=== PATIENT | female | born 1940 | race African-American/Black ===

== ENCOUNTER 2017-12-07 10:20 | Outpatient (CLI) | payer MEDICARE ==
--- NOTE | 2017-12-07 11:05 | MMO ---
BILATERAL SCREENING MAMMOGRAMS: HISTORY: A 77-year-old female for screening mammography. COMPARISON: 01/23/2014 and 09/06/2012 FINDINGS: Bilateral MLO and CC views of the breasts show scattered fibroglandular breast tissue. Vascular calc ifications are seen. Other benign appearing calcifications are seen in both breasts. There is no ev idence of suspicious mass, suspicious cluster of microcalcifications, or area of architectural distor tion. Interpretation of this mammogram was performed with the assistance of computer aided detection. IMPRESSION: BI-RADS Category 2-Benign findings. Annual screening mammography is recommended. POS: [facility]
== END 2017-12-07 10:21 | disposition home or self-care (01) ==
LOC: SCSMAMMO 10:20
PROVIDERS: ATTEND Family Medicine
DX: Z12.31 Encounter for screening mammogram for malignant neoplasm of breast (principal)
CPT/HCPCS: 77067

== ENCOUNTER 2018-10-25 18:15 | Observation (INO) | payer MEDICARE ==
[2018-10-25] MEDS ORDERED: Ondansetron PF 4 MG/2 ML Vial IVP PRN (20:23)
[2018-10-25] MEDS ORDERED: Ondansetron ODT 4 MG TAB PO PRN (20:23)
[2018-10-25] MEDS ORDERED: Acetaminophen 325 MG TAB PO PRN (20:23)
[2018-10-25 23:47] VITALS: BMI 30.7
[2018-10-26 05:52] LABS: #Eosinphils 0.1 thou/uL (0.0-0.7); #Lymphocytes 1.7 thou/uL (1.20-3.40); #Monocytes 0.4 thou/uL (0.11-0.59); #Neutrophils 3.6 thou/uL (1.40-6.50); %Basophils 0.8 % (0.0-1.0); %Eosinophils 2.5 % (0.0-10.0); %Lymphocytes 29.1 % (21.0-51.0); %Monocytes 7.1 % (0.0-10.0); %Neutrophils 60.5 % (42.0-75.0); Hemoglobin 11.5 g/dL (12.0-16.0); Mean Corpuscular Hemoglobin 32.7 pg (27.0-31.0); Mean Corpuscular Volume 98.9 fL (78.0-98.0); Mean Platelet Volume 8.1 fL (7.4-10.4); Platelet Count 177 thou/uL (130-400); RBC Distribution Width 12.3 % (11.5-14.5); White Blood Cell (WBC) Count 5.9 thou/uL (4.8-10.8)
[2018-10-26 06:11] LABS: Anion Gap 10 mmol/L (10-20); BUN (Urea Nitrogen) 12 mg/dL (9.8-20.1); Calc. Creatinine Clearance 94 mL/min (70-130); Calcium 10.3 mg/dL (7.8-10.44); Carbon Dioxide 26 mmol/L (23-31); Cardiac Risk 2.4 (Less than 4.5); Chloride 107 mmol/L (98-107); Cholesterol 158 mg/dl (< 200 Desired); Estimated GFR-MDRD 86; Glucose 84 mg/dL (83-110); HDL Cholesterol 66 mg/dL (>60 Neg Risk); LDL Cholesterol, Calculated 80 mg/dL; Potassium 3.9 mmol/L (3.5-5.1); Sodium 139 mmol/L (136-145); Triglycerides 58 mg/dL (Less than 150)
--- NOTE | 2018-10-26 06:45 | PDOC.EVN ---
Event Note - Event Note Event Note: Pt wants to be a full code
--- NOTE | 2018-10-26 08:01 | HP ---
CODE STATUS: DNR/DNI. As stated by patient, "If my time calls, please let me go, I will not like to be on any machine to prolong my life." TIME OF EVALUATION: 08:30. CHIEF COMPLAINT: Slurred speech. HISTORY OF PRESENT ILLNESS: This 77-year-old female patient with past medical history of hyperlipidemia, hypertension, came to the hospital after having an episode of being of speaking in a funny way, with no clear triggers, no alleviating factors, symptoms started around 3 to 4 p.m., and lasted for around 30 minutes. Symptoms have disappeared. There are no clear triggers, no other significant neurological symptoms were related, the symptoms started suddenly. REVIEW OF SYSTEMS: CONSTITUTIONAL: No fever, chills, or generalized weakness. RESPIRATORY: No cough, sputum production, or shortness of breath. CARDIOVASCULAR: No chest pain or palpitation. GASTROINTESTINAL: No nausea, vomiting, diarrhea, or abdominal pain. CENTRAL NERVOUS SYSTEM: No dizziness, headache or feeling lightheaded. The patient did have slurred speech. GENITOURINARY: No burning on urination. EXTREMITIES: No leg swelling. All other systems were reviewed and negative except for the findings mentioned above. PAST MEDICAL HISTORY: Positive for hypertension and high cholesterol. FAMILY HISTORY: Mother had a history of coronary artery disease, from a heart attack. SOCIAL HISTORY: The patient lives with family. KNOWN ALLERGIES: No known drug allergies. REPORTED MEDICATIONS: 1. Lisinopril. 2. Atorvastatin. 3. Vitamin D3. 4. Omeprazole. PHYSICAL EXAMINATION: VITAL SIGNS: On presentation, blood pressure 164/100, heart rate 71, respiratory rate was 19, temperature 98.5, oxygen saturation 99% on room air. GENERAL APPEARANCE: The patient is alert, oriented, not in acute distress. HEENT: Eyes, normal conjunctivae. Moist oral mucosa. Anicteric. No JVD. RESPIRATORY: Bilateral air entry. No rales. No wheezes. Symmetric expansion. CARDIOVASCULAR: Normal rate, regular rhythm. No murmurs. No gallop. No edema. ABDOMEN: Soft. Normal bowel sounds. MUSCULOSKELETAL: Baseline range of motion and strength. No tenderness. SKIN: Warm, intact. No pallor. No rash. No redness. Peripheral pulses are present. Capillary refill seems to be intact. NEUROLOGICAL: No evidence of any new focal weakness. Cranial nerves seem to be intact. PSYCHIATRIC: The patient is in good mood. No anxiety. Optimal judgment. DIAGNOSTIC DATA: EKG; the patient has normal sinus rhythm with a rate of 73, MT 176, QRS 108, QT corrected 431, voltage criteria for left ventricular hypertrophy. Brain CT was done, the patient has no acute intracranial process. LABORATORY DATA: Reviewed. The patient has white count 7.2, hemoglobin 12.5, MCV 96.7, platelet count 188. Coagulation; PT 13.4, INR 1.0, PTT 31.5. Chemistry; serum potassium 3.9, sodium 140, potassium 4.0, chloride 106, carbon dioxide 25, anion gap 13, BUN 15, , creatinine 1.0. GFR 63. ASSESSMENT AND PLAN: The patient will be placed in the hospital with following medical problems: 1. Transient ischemic attack. We will perform a stroke protocol. Call the Neurology. Further treatment as per findings in the workup. 2. Hypertensive urgency. The patient has a systolic blood pressure, 196/110. We will allow permissive hypertension given neew neurological symptoms. We will treat accordingly as per protocol. 3. High cholesterol. Low-cholesterol diet is advised. Reconcile home medications. 4. Deep venous thrombosis prophylaxis. Job ID: [id number] [facility]
[2018-10-26] MEDS ORDERED: Enoxaparin Sodium 40 MG/0.4 ML SYRINGE SC SCH (09:00)
[2018-10-26] MEDS ORDERED: Aspirin 325 mg Enteric Coated Tablet PO SCH (09:00)
--- NOTE | 2018-10-26 12:26 | MRI ---
BRAIN MRI WITHOUT CONTRAST: Date: 10/26/18 COMPARISON: 11/12/06. HISTORY: Slurred speech. TECHNIQUE: Multiplanar, multisequence MR imaging of the brain obtained without contrast. FINDINGS: Stable middle cranial fossa arachnoid cyst noted, measuring up to 4.2 x 4.6 x 6.0 cm. The gradient ec ho imaging demonstrates no evidence for intracranial hemorrhage. There is stable mild mass effect on the anterior aspect of the left temporal lobe associated with the above described stable left middle cranial fossa arachnoid cyst. There are scattered small T2 and FL AIR hyperintense foci within the periventricular, deep, and subcortical white matter, most prominent in the frontal regions, left greater than right, slightly worsened when compared to the prior examina tion. These findings are consistent with small vessel disease. The imaged paranasal sinuses demonstrate mild polypoid mucosal thickening within the posterior and in ferior aspect of bilateral maxillary sinuses. The regional bone marrow signal intensity is within normal limits. The diffusion-weighted imaging dem onstrates no evidence for acute infarction. IMPRESSION: Chronic findings as described above. No evidence for intracranial hemorrhage or acute infarction. POS: [facility]
[2018-10-26] MEDS ORDERED: Lisinopril 20 MG TAB PO SCH (12:45)
[2018-10-26] MEDS ORDERED: Cyanocobalamin (Vitamin B-12) 1,000 MCG TAB PO SCH (14:00)
[2018-10-26] MEDS ORDERED: hydrALAZINE 20 MG/ML VIAL SLOW IVP PRN (14:31)
[2018-10-26 15:56] VITALS: TEMP 97.9
[2018-10-26] MEDS ORDERED: hydrALAZINE 25 MG TAB PO SCH ×2 (16:00→21:00)
[2018-10-26 16:51] VITALS: BP 183/85
[2018-10-26] MEDS ORDERED: Atorvastatin Calcium 40 MG TAB PO SCH (21:00)
[2018-10-27] MEDS ORDERED: Non-Formulary Item 1 EACH (Omeprazole [Omeprazole] 40 MG) PO SCH (09:00)
[2018-10-27] MEDS ORDERED: Lisinopril 20 MG TAB PO SCH (09:00)
[2018-10-27] MEDS ORDERED: Non-Formulary Item 1 EACH (Cholecalciferol (Vitamin D3) [Vitamin D3] 2,000 UNIT) PO SCH (09:00)
--- NOTE | 2018-10-27 11:34 | DIS ---
DATE OF ADMISSION: 10/25/2018 DATE OF DISCHARGE: 10/26/2018 CHIEF COMPLAINT: On admission: Slurred speech. DISCHARGE DIAGNOSES: 1. Transient ischemic attack as evidenced by slurred speech, resolved, cerebrovascular accident workup negative. 2. History of congenital arachnoid cyst, stable per MRI. 3. Accelerated hypertension on arrival, now controlled. 4. Hyperlipidemia. 5. Diastolic dysfunction per echocardiogram. BRIEF HOSPITAL COURSE: The patient is a very pleasant, 77-year-old female with past medical history significant for hyperlipidemia and hypertension, who presented to the hospital after having a very brief episode of slurred speech. The patient stated that her episode only lasted a few seconds before resolving on its own, but she was very concerned about stroke, and presented to the ER for further workup and treatment. Workup on arrival included EKG which showed normal sinus rhythm and no evidence of arrhythmia. Her echocardiogram showed normal left ventricular systolic function with EF 60% to 65%, grade 1/3 diastolic dysfunction. She did have an MRI performed which showed stable middle cranial fossa arachnoid cyst, no evidence for intracranial hemorrhage or acute infarction. Dr. Clay of Neurology was consulted, who recommended aspirin therapy, along with continued statin therapy. Apparently, the patient's blood pressure medication had been titrated down prior to her admission, her lisinopril was reinstated along with oral hydralazine. Her blood pressure did trend down nicely. CONDITION ON DISCHARGE: Stable. DISCHARGE DISPOSITION: Home. FOLLOWUP AND DISCHARGE INSTRUCTIONS: The patient will continue close followup with her PCP. She will monitor her blood pressure at home. New medications will be aspirin 325 mg daily along with hydralazine 25 mg b.i.d. She will continue her home dose of lisinopril and statin. She will continue aggressive risk factor modification along with low-sodium diet. Care of this patient has been discussed with Dr. Pineda who agrees with discharge as outlined above. Job ID: [id number]
[2018-10-29] MEDS ORDERED: Non-Formulary Item 1 EACH (Cyanocobalamin (Vitamin B-12) [Vitamin B12] 2,500 MCG) PO SCH (09:00)
== END 2018-10-26 18:32 | disposition home or self-care (01) ==
LOC: ERS 18:15 → 2SE 21:17
PROVIDERS: ADMIT Internal Medicine; ATTEND Internal Medicine
DX: G45.9 Transient cerebral ischemic attack, unspecified (principal); I10 Essential (primary) hypertension; I16.0 Hypertensive urgency; E78.5 Hyperlipidemia, unspecified; E78.00 Pure hypercholesterolemia, unspecified; Z79.899 Other long term (current) drug therapy
CPT/HCPCS: 70551; 80048; 80061; 85025; 93306; 96372; 99285; G0378 ×2; 36415; J0360; J1650

== ENCOUNTER 2018-12-08 08:44 | Outpatient (CLI) | payer MEDICARE ==
[2018-12-08 09:58] LABS: #Eosinphils 0.1 thou/uL (0.0-0.7); #Lymphocytes 1.5 thou/uL (1.20-3.40); #Monocytes 0.5 thou/uL (0.11-0.59); #Neutrophils 3.8 thou/uL (1.40-6.50); %Eosinophils 1.5 % (0.0-10.0); %Lymphocytes 25.6 % (21.0-51.0); %Monocytes 8.2 % (0.0-10.0); %Neutrophils 64.7 % (42.0-75.0); Hemoglobin 12.4 g/dL (12.0-16.0); Mean Corpuscular HGB CONC 32.9 g/dL (32.0-36.0); Mean Corpuscular Hemoglobin 32.4 pg (27.0-31.0); Mean Corpuscular Volume 98.6 fL (78.0-98.0); Mean Platelet Volume 8.4 fL (7.4-10.4); Platelet Count 194 thou/uL (130-400); Red Blood Cell (RBC) Count 3.82 mill/uL (4.20-5.40); White Blood Cell (WBC) Count 5.8 thou/uL (4.8-10.8)
[2018-12-08 10:06] LABS: Prothrombin Time 12.9 SEC (12.0-14.7)
[2018-12-08 10:23] LABS: Anion Gap 13 mmol/L (10-20); BUN (Urea Nitrogen) 13 mg/dL (9.8-20.1); Calc. Creatinine Clearance 0 mL/min (70-130); Calcium 10.8 mg/dL (7.8-10.44); Carbon Dioxide 25 mmol/L (23-31); Chloride 106 mmol/L (98-107); Estimated GFR-MDRD 73; Glucose 97 mg/dL (83-110); Potassium 4.1 mmol/L (3.5-5.1); Sodium 140 mmol/L (136-145)
[2018-12-08 10:58] LABS: RBC/HPF 0-3 HPF (0-3); Squamous Epithelial 0-3 HPF (0-3); WBC/HPF 0-3 HPF (0-3)
[2018-12-08 11:05] LABS: Bacteria/HPF 1+ HPF (None Seen)
== END 2018-12-08 08:45 | disposition home or self-care (01) ==
LOC: LABBT 08:44
PROVIDERS: ATTEND Orthopaedic Surgery
DX: Z01.812 Encounter for preprocedural laboratory examination (principal); M17.11 Unilateral primary osteoarthritis, right knee
CPT/HCPCS: 80048; 81015; 85025; 85610; 87081

== ENCOUNTER 2018-12-19 05:44 | Inpatient (IN) | payer MEDICARE ==
[2018-12-19] MEDS ORDERED: ceFAZolin Sodium (SDC) 2 GM/100 ML BAG ONE (05:57)
[2018-12-19] MEDS ORDERED: Sodium Chloride 0.9% 100 ML ONE (05:57)
[2018-12-19] MEDS ORDERED: Tranexamic Acid 1,000 MG/10 ML VIAL ONE ×2 (05:57→09:30)
[2018-12-19] MEDS ORDERED: Vancomycin HCl 1.5 GM in Sodium Chloride 0.9% 250 ML 300 ML IVPB SCH ×2 (06:15→18:00)
[2018-12-19] MEDS ORDERED: Bupivacaine PF 0.5% 30 ML VIAL ONE (06:32)
[2018-12-19] MEDS ORDERED: Fentanyl 100 MCG/2 ML VIAL ONE (06:34)
[2018-12-19] MEDS ORDERED: Midazolam HCl 2 mg/2 ml Vial ONE (06:34)
[2018-12-19] MEDS ORDERED: Tranexamic Acid 1,000 MG in Sodium Chloride 0.9% 100 ML IVPB SCH (07:15)
[2018-12-19] MEDS ORDERED: Promethazine HCl 25 MG/ML VIAL IM PRN ×3 (07:16→07:50)
[2018-12-19] MEDS ORDERED: HYDROcodone/Acetaminophen 10/325 mg Tablet PO PRN ×2 (07:16)
[2018-12-19] MEDS ORDERED: Ondansetron PF 4 MG/2 ML Vial IVP PRN ×2 (07:16→07:44)
[2018-12-19] MEDS ORDERED: Fentanyl 100 MCG/2 ML VIAL SLOW IVP PRN ×2 (07:16→07:45)
[2018-12-19] MEDS ORDERED: Acetaminophen 325 MG TAB PO PRN (07:16)
[2018-12-19] MEDS ORDERED: traMADol HCl 50 MG TAB PO PRN ×3 (07:16→07:44)
[2018-12-19] MEDS ORDERED: Zolpidem Tartrate 5 MG TAB PO PRN ×2 (07:16→07:44)
[2018-12-19] MEDS ORDERED: Ropivacaine HCl/PF 250 ML in Premix Bag 1 BAG NERVE BLCK SCH (07:44)
[2018-12-19] MEDS ORDERED: Ketorolac Tromethamine 30 MG/ML VIAL IVP PRN (07:44)
[2018-12-19] MEDS ORDERED: Promethazine HCl 25 MG/ML VIAL SLOW IVP PRN (07:50)
[2018-12-19] MEDS ORDERED: Ondansetron HCl/PF 4 MG/2 ML Vial IVP PRN (07:50)
[2018-12-19] MEDS ORDERED: Atorvastatin Calcium 20 MG TAB PO SCH (09:00)
[2018-12-19] MEDS ORDERED: Lisinopril 20 MG TAB PO SCH (09:00)
[2018-12-19] MEDS: Sodium Chloride 0.9% 1,000 ML IV SCH ×3 (10:33→21:38)
[2018-12-19] MEDS ORDERED: hydrALAZINE 20 MG/ML VIAL SLOW IVP PRN (10:37)
--- NOTE | 2018-12-19 10:54 | OP ---
DATE OF PROCEDURE: 12/19/2018 INFANT CHILDCARE PROVIDER: Willy Olmstead PA-C PREOPERATIVE DIAGNOSIS: Right knee osteoarthrosis. POSTOPERATIVE DIAGNOSIS: Right knee osteoarthrosis. PROCEDURE PERFORMED: Right total knee replacement using Agusto pinless navigation. ESTIMATED BLOOD LOSS: Minimal. COMPLICATIONS: None. ANESTHESIA: She did have general anesthetic as well as preoperative block. COMPLICATIONS: There were no complications. IMPLANTS: To the right knee, we used a Agusto Triathlon total knee system. The femur was a size 5, tibial baseplate was size 5. We used a 5 x 11 mm CS X3 tibial plastic. We used a 29 x 9 asymmetric X3 patella. DISPOSITION: She did go to recovery room in stable condition. INDICATIONS: Ms. Kim is a 78-year-old female, who has had long-term arthritis of her knee and at this time is unable to get good pain relief for daily activities. At this time, she wished to have her knee replaced. PROCEDURE IN DETAIL: After all appropriate consent forms were explained and signed, the patient was taken back to the operating room and at this time was given general anesthetic. Once the level of anesthesia was appropriate, a well-padded tourniquet was placed on the right leg, and the leg was then prepped and draped in standard surgical fashion. The limb was exsanguinated and tourniquet taken up to 300 mmHg. Midline incision was made with a 10 blade down through the skin and subcutaneous tissue. Bovie electrocautery was used to coagulate any brisk venous bleeding. A new blade was used to make a medial parapatellar arthrotomy. Small subperiosteal release was performed medially and excess fat pad was removed. The knee was flexed up to gain access to the femur. The femur was navigated and distal femoral resection was made. Epicondylar access was used to align our sizing jig and this was pinned in place. We sized our femur to be a size 5. 4:1 cutting block was applied and pinned. Anterior and posterior chamfer cuts were then made. We navigated out our proximal tibia and made our proximal tibial resection. Spreaders were used to remove any posterior osteophytes off the back of the femur as well as remaining meniscal tissue. A long alignment anastasia was then used to achieve correct rotation of our tibial baseplate and a size 5 was chosen. This was pinned in place. We trialed the polyethylene and a 5 x 11 mm CS X3 tibial plastic polyethylene gave us full extension and good stability throughout range of motion. Two towel clips and a saw were used to cut our patella. Three lug nuts were drilled and a 29 x 9 asymmetric X3 patella was trialed which sat nicely in the trochlear groove. We then drilled our femur and punched our tibia. All components were removed. The knee was thoroughly irrigated and dried. Cement was mixed into the cement gun on the back table. Components were then placed. The knee was held out in full extension until the cement had dried. All excess bone cement was removed. Multiple #2 Vicryl stitches as well as a Quill were used to close our extensor mechanism. 0 Quill followed by a running Monoderm was then used to close the skin. Surgicel glue was then used on the skin. Once this had dried, soft tissue dressing was applied to the limb, tourniquet was let down, and the toes pinked up nicely. The patient was then awakened and taken to the recovery room in stable condition. All counts were correct at the end of the case. The patient did receive preoperative IV antibiotics. The patient was injected with Exparel for postoperative pain relief. Job ID: [id number]
[2018-12-19] MEDS: Aspirin 81 mg Enteric Coated Tablet PO SCH ×2 (11:52→21:40)
[2018-12-19] MEDS: Cyanocobalamin (Vitamin B-12) 1,000 MCG TAB PO SCH (11:52)
[2018-12-19] MEDS: hydrALAZINE 25 MG TAB PO SCH ×2 (11:54→21:41)
[2018-12-19] MEDS: Furosemide 40 MG TAB PO SCH (11:56)
[2018-12-19] MEDS ORDERED: Ketorolac Tromethamine 30 MG/ML VIAL IVP SCH (14:00)
[2018-12-19] MEDS ORDERED: CEFAZOLIN 2 GM in Sodium Chloride 0.9% 100 ML IVPB SCH (14:00)
[2018-12-19] MEDS ORDERED: Bupivacaine HCl 0.5%/Epinephrine 1:200,000/PF 30 ml Vial ONE (16:26)
[2018-12-19] MEDS ORDERED: Ropivacaine 0.2% HCl/PF (40 MG/20 ML VIAL) ONE (16:26)
[2018-12-19] MEDS ORDERED: Ondansetron PF 4 MG/2 ML Vial ONE (17:06)
[2018-12-19] MEDS ORDERED: Ketorolac Tromethamine 30 MG/ML VIAL ONE (17:06)
[2018-12-19] MEDS ORDERED: Lidocaine 1% PF 5 ML VIAL ONE (17:06)
[2018-12-19] MEDS ORDERED: PROPOFOL 200 MG/20 ML VIAL ONE (17:06)
--- NOTE | 2018-12-19 17:46 | PDOC.HOSPP ---
- Subjective Subjective: Patient seen and examined for med mngt. No CP. Follows Dr Mejia. Pain controlled. No new complaints. - Objective Vital Signs & Weight: Vital Signs (12 hours) Pulse BP Pulse Ox 12/19/18 12:00 98 12/19/18 11:54 86 123/81 Weight Weight 216 lb 0.002 oz Result Diagrams: 12/20/18 04:37 EKG Reviewed by me: Yes (SR) ROS - Review of Systems All systems: All other ROS were reviewed and found negative. Respiratory: denies: cough, dry, shortness of breath, hemoptysis, SOB with excertion, pleuritic pain, sputum, wheezing, other Cardiovascular: denies: chest pain, palpitations, orthopnea, paroxysmal noc. dyspnea, edema, light headedness, other Gastrointestinal: denies: nausea, vomitting, abdominal pain, diarrhea, constipation, melena, hematochezia, other - Medication Medications: Active Medications Generic Name Dose Route Start Last Admin Trade Name Freq PRN Reason Stop Dose Admin Aspirin 81 mg 12/19/18 09:00 12/19/18 11:52 Ecotrin PO 81 mg BID ABDI Administration Cholecalciferol 2,000 units 12/19/18 09:00 12/19/18 11:52 Vitamin D3 PO 2,000 units DAILY ABDI Administration Cyanocobalamin 2,500 mcg 12/19/18 09:00 12/19/18 11:52 Vitamin B-12 PO 2,500 mcg Q3DAYS ABDI Administration Furosemide 40 mg 12/19/18 09:00 12/19/18 11:56 Lasix PO 40 mg DAILY ABDI Administration Hydralazine HCl 25 mg 12/19/18 09:00 12/19/18 11:54 Apresoline PO 25 mg BID ABDI Administration Sodium Chloride 1,000 mls @ 100 mls/hr 12/19/18 07:30 12/19/18 10:33 Normal Saline 0.9% IV Not Given .Q10H ABDI Pantoprazole Sodium 40 mg 12/19/18 09:00 12/19/18 11:54 Protonix PO 40 mg DAILY ABDI Administration Tramadol HCl 50 mg 12/19/18 07:44 12/19/18 16:55 Ultram PO 50 mg Q6H PRN Administration Mild Pain (1-3) - Exam NAD Neck: supple, no JVD Heart: RRR, no rubs Respiratory: CTAB, no rales Gastrointestinal: soft, non-tender, normal bowel sounds Extremities: no edema Neurological: no weakness, no new deficit Psychiatric: normal affect, A&O x 3 Hosp A/P (1) HTN (hypertension) Code(s): I10 - ESSENTIAL (PRIMARY) HYPERTENSION Status: Chronic (2) GERD (gastroesophageal reflux disease) Code(s): K21.9 - GASTRO-ESOPHAGEAL REFLUX DISEASE WITHOUT ESOPHAGITIS Status: Chronic (3) Chronic diastolic heart failure Code(s): I50.32 - CHRONIC DIASTOLIC (CONGESTIVE) HEART FAILURE Status: Chronic (4) CKD (chronic kidney disease) stage 2, GFR 60-89 ml/min Code(s): N18.2 - CHRONIC KIDNEY DISEASE, STAGE 2 (MILD) Status: Chronic (5) H/O TIA (transient ischemic attack) and stroke Code(s): Z86.73 - PRSNL HX OF TIA (TIA), AND CEREB INFRC W/O RESID DEFICITS (6) Intracranial arachnoid cyst Code(s): G93.0 - CEREBRAL CYSTS Status: Chronic (7) Obesity (BMI 30.0-34.9) Code(s): E66.9 - OBESITY, UNSPECIFIED Status: Chronic - Plan old records reviewed/req, plan discussed w/ family, PT/OT, out of bed/ambulate, DVT proph w/SCDs Cont PPI Cont Lisinopril with Lasix Cont Statins Pain control per Anesthesia Full code DPOA- self/family
[2018-12-19] MEDS: Atorvastatin Calcium 20 MG TAB PO SCH (21:40)
[2018-12-19] MEDS: Lisinopril 20 MG TAB PO SCH (21:41)
[2018-12-19] MEDS ORDERED: CEFAZOLIN 2 GM, IV Admixture Fee-Chemo 1 UNITS in Sodium Chloride 0.9% 100 ML IVPB SCH (22:00)
[2018-12-20] MEDS: HYDROcodone/Acetaminophen 10/325 mg Tablet PO PRN ×3 (00:15→14:10)
[2018-12-20 05:08] LABS: Hemoglobin 10.9 g/dL (12.0-16.0); Mean Corpuscular HGB CONC 33.3 g/dL (32.0-36.0); Mean Corpuscular Hemoglobin 33.2 pg (27.0-31.0); Mean Corpuscular Volume 99.6 fL (78.0-98.0); Mean Platelet Volume 8.1 fL (7.4-10.4); Platelet Count 182 thou/uL (130-400); RBC Distribution Width 12.1 % (11.5-14.5); Red Blood Cell (RBC) Count 3.29 mill/uL (4.20-5.40); White Blood Cell (WBC) Count 9.7 thou/uL (4.8-10.8)
[2018-12-20] MEDS: Aspirin 81 mg Enteric Coated Tablet PO SCH ×2 (09:17→22:00)
[2018-12-20] MEDS: Ferrous Gluconate 324 MG TAB PO SCH ×2 (09:17→19:24)
[2018-12-20] MEDS: Senokot S 8.6-50 MG TAB PO SCH ×2 (09:18→22:00)
[2018-12-20] MEDS: Furosemide 40 MG TAB PO SCH (09:19)
[2018-12-20] MEDS: hydrALAZINE 25 MG TAB PO SCH ×2 (09:19→22:00)
[2018-12-20] MEDS: Multivitamin W/ Minerals 1 TAB PO SCH (10:56)
[2018-12-20 12:10] VITALS: BMI 30.9
--- NOTE | 2018-12-20 12:32 | PRG ---
DATE OF SERVICE: 12/20/2018 SUBJECTIVE: Iveth is a 78-year-old female, who is postop day #1 from a right total knee arthroplasty. She is doing relatively well. Her pain has been controlled currently, but she has been slow to get up and move. I believe she walked very short distance yesterday evening. OBJECTIVE: VITAL SIGNS: Temperature 98.3, pulse 65, respiratory rate 16, blood pressure is 124/67. NEUROLOGIC AND EXTREMITIES: She is alert and oriented to person, place, time, situation. Grossly nonfocal. Responsive and appropriate with examiner. Her incision is clean and closed. No erythema. She is neurovascularly intact in the right lower extremity. There is no rotation or deformity noted. LABORATORY DATA: Hemoglobin and hematocrit are 10.9 and 32.8. IMPRESSION: A 78-year-old female with postop day #1 right total knee arthroplasty. PLAN: Continue current care. I believe the patient desires to go home, but she may be a better candidate for a skilled stay short term. Job ID: [id number]
[2018-12-20] MEDS: Sodium Chloride 0.9% 1,000 ML IV SCH ×2 (14:12→22:29)
--- NOTE | 2018-12-20 19:13 | PDOC.HOSPP ---
- Subjective Subjective: Patient seen and examined for med mngt. Pain controlled. No CP/SOB or palpitations. No new complaints. No overnight events - Objective Vital Signs & Weight: Vital Signs (12 hours) Temp Pulse Resp BP BP Pulse Ox 12/20/18 15:12 98.5 F 75 18 136/74 100 12/20/18 09:19 65 124/67 12/20/18 07:52 96 12/20/18 07:45 98.3 F 65 16 124/76 96 Weight Admit Weight 216 lb Weight 216 lb I&O: 12/19/18 12/20/18 12/21/18 06:59 06:59 06:59 Intake Total 1780 Output Total 400 Balance 1380 Result Diagrams: 12/20/18 04:37 ROS - Review of Systems All systems: All other ROS were reviewed and found negative. Respiratory: denies: cough, dry, shortness of breath, hemoptysis, SOB with excertion, pleuritic pain, sputum, wheezing, other Cardiovascular: denies: chest pain, palpitations, orthopnea, paroxysmal noc. dyspnea, edema, light headedness, other - Medication Medications: Active Medications Generic Name Dose Route Start Last Admin Trade Name Freq PRN Reason Stop Dose Admin Hydrocodone Bitart/Acetaminophen 1 tab 12/19/18 07:44 12/20/18 14:10 Rindge 10/325 PO 1 tab Q4H PRN Administration Pain (1-3) Hydrocodone Bitart/Acetaminophen 2 tab 12/19/18 07:44 12/20/18 04:45 Rindge 10/325 PO 2 tab Q4H PRN Administration PAIN (4-6) Aspirin 81 mg 12/19/18 09:00 12/20/18 09:17 Ecotrin PO 81 mg BID ABDI Administration Atorvastatin Calcium 20 mg 12/19/18 21:00 12/19/18 21:40 Lipitor PO 20 mg 2100 ABDI Administration Cholecalciferol 2,000 units 12/19/18 09:00 12/20/18 09:18 Vitamin D3 PO 2,000 units DAILY ABDI Administration Cyanocobalamin 2,500 mcg 12/19/18 09:00 12/19/18 11:52 Vitamin B-12 PO 2,500 mcg Q3DAYS ABDI Administration Ferrous Gluconate 324 mg 12/20/18 08:00 12/20/18 09:17 Fergon PO 324 mg BID-WM ABDI Administration Furosemide 40 mg 12/19/18 09:00 12/20/18 09:19 Lasix PO 40 mg DAILY ABDI Administration Hydralazine HCl 25 mg 12/19/18 09:00 12/20/18 09:19 Apresoline PO 25 mg BID ABDI Administration Sodium Chloride 1,000 mls @ 100 mls/hr 12/19/18 07:30 12/20/18 14:12 Normal Saline 0.9% IV Not Given .Q10H BADI Ropivacaine 250 ml/ Device 250 mls @ 10 mls/hr 12/19/18 07:44 12/20/18 11:05 NERVE BLCK 250 mls INF ABID Administration Iron/Minerals/Multivitamins 1 tab 12/20/18 09:00 12/20/18 10:56 Theragran M PO Not Given DAILY ABDI Ketorolac Tromethamine 15 mg 12/19/18 07:44 12/20/18 09:09 Toradol IVP 12/22/18 07:45 15 mg Q6H PRN Administration Moderate Pain (4-6) Lisinopril 20 mg 12/19/18 21:00 12/19/18 21:41 Zestril PO 20 mg 2100 ABDI Administration Ondansetron HCl 4 mg 12/19/18 07:44 12/20/18 08:19 Zofran IVP 4 mg Q6H PRN Administration Nausea/Vomiting Pantoprazole Sodium 40 mg 12/19/18 09:00 12/20/18 09:19 Protonix PO 40 mg DAILY ABDI Administration Senna/Docusate Sodium 2 tab 12/20/18 09:00 12/20/18 09:18 Senokot S PO 2 tab BID ABDI Administration Sodium Chloride 10 ml 12/19/18 07:16 12/20/18 08:16 Flush - Normal Saline IVF 10 ml PRN PRN Administration Saline Flush Tramadol HCl 50 mg 12/19/18 07:44 12/19/18 16:55 Ultram PO 50 mg Q6H PRN Administration Mild Pain (1-3) Tramadol HCl 100 mg 12/19/18 07:44 12/20/18 09:09 Ultram PO 100 mg Q6H PRN Administration Moderate Pain 4-6 - Exam NAD Heart: RRR, no rubs Respiratory: CTAB, no rales Gastrointestinal: soft, non-tender, normal bowel sounds Extremities: no edema Hosp A/P (1) HTN (hypertension) Code(s): I10 - ESSENTIAL (PRIMARY) HYPERTENSION Status: Chronic (2) GERD (gastroesophageal reflux disease) Code(s): K21.9 - GASTRO-ESOPHAGEAL REFLUX DISEASE WITHOUT ESOPHAGITIS Status: Chronic (3) Chronic diastolic heart failure Code(s): I50.32 - CHRONIC DIASTOLIC (CONGESTIVE) HEART FAILURE Status: Chronic (4) CKD (chronic kidney disease) stage 2, GFR 60-89 ml/min Code(s): N18.2 - CHRONIC KIDNEY DISEASE, STAGE 2 (MILD) Status: Chronic (5) H/O TIA (transient ischemic attack) and stroke Code(s): Z86.73 - PRSNL HX OF TIA (TIA), AND CEREB INFRC W/O RESID DEFICITS (6) Intracranial arachnoid cyst Code(s): G93.0 - CEREBRAL CYSTS Status: Chronic (7) Obesity (BMI 30.0-34.9) Code(s): E66.9 - OBESITY, UNSPECIFIED Status: Chronic - Plan Cont Lisinopril/Lasix/Statins and PPI Cont to monitor Will follow PRN
[2018-12-20] MEDS: Atorvastatin Calcium 20 MG TAB PO SCH (22:00)
[2018-12-20] MEDS: Lisinopril 20 MG TAB PO SCH (22:00)
[2018-12-20] MEDS: diphenhydrAMINE 25 MG CAP PO PRN (22:27)
[2018-12-21 05:27] LABS: Hemoglobin 10.4 g/dL (12.0-16.0); Mean Corpuscular HGB CONC 33.7 g/dL (32.0-36.0); Mean Corpuscular Hemoglobin 33.2 pg (27.0-31.0); Mean Corpuscular Volume 98.5 fL (78.0-98.0); Mean Platelet Volume 8.4 fL (7.4-10.4); Platelet Count 163 thou/uL (130-400); RBC Distribution Width 12.1 % (11.5-14.5); Red Blood Cell (RBC) Count 3.12 mill/uL (4.20-5.40); White Blood Cell (WBC) Count 9.5 thou/uL (4.8-10.8)
[2018-12-21] MEDS: Multivitamin W/ Minerals 1 TAB PO SCH (08:28)
[2018-12-21] MEDS: Cyanocobalamin (Vitamin B-12) 1,000 MCG TAB PO SCH (08:29)
[2018-12-21] MEDS: Senokot S 8.6-50 MG TAB PO SCH ×2 (08:30→19:53)
[2018-12-21] MEDS: hydrALAZINE 25 MG TAB PO SCH ×2 (08:30→19:55)
[2018-12-21] MEDS: HYDROcodone/Acetaminophen 10/325 mg Tablet PO PRN ×2 (08:31→12:41)
[2018-12-21] MEDS: Ferrous Gluconate 324 MG TAB PO SCH ×2 (08:32→18:38)
[2018-12-21] MEDS: Furosemide 40 MG TAB PO SCH (08:32)
[2018-12-21] MEDS: Aspirin 81 mg Enteric Coated Tablet PO SCH ×2 (08:32→19:53)
[2018-12-21] MEDS: Sodium Chloride 0.9% 1,000 ML IV SCH ×2 (15:00→19:55)
[2018-12-21] MEDS ORDERED: Ondansetron ODT 4 MG TAB PO PRN (18:27)
[2018-12-21] MEDS: Atorvastatin Calcium 20 MG TAB PO SCH (19:53)
[2018-12-21] MEDS: Lisinopril 20 MG TAB PO SCH (19:55)
[2018-12-22] MEDS: HYDROcodone/Acetaminophen 10/325 mg Tablet PO PRN ×4 (00:02→14:27)
[2018-12-22] MEDS: Sodium Chloride 0.9% 1,000 ML IV SCH (04:58)
[2018-12-22 05:33] LABS: Hemoglobin 10.7 g/dL (12.0-16.0); Mean Corpuscular HGB CONC 32.6 g/dL (32.0-36.0); Mean Corpuscular Hemoglobin 33.2 pg (27.0-31.0); Platelet Count 163 thou/uL (130-400); RBC Distribution Width 12.1 % (11.5-14.5); Red Blood Cell (RBC) Count 3.23 mill/uL (4.20-5.40); White Blood Cell (WBC) Count 9.6 thou/uL (4.8-10.8)
[2018-12-22 07:43] VITALS: TEMP 97.6
[2018-12-22] MEDS: Aspirin 81 mg Enteric Coated Tablet PO SCH (07:51)
[2018-12-22] MEDS: Cyanocobalamin (Vitamin B-12) 1,000 MCG TAB PO SCH (07:51)
[2018-12-22] MEDS: Furosemide 40 MG TAB PO SCH (07:52)
[2018-12-22] MEDS: hydrALAZINE 25 MG TAB PO SCH (07:52)
[2018-12-22] MEDS: Multivitamin W/ Minerals 1 TAB PO SCH (07:53)
[2018-12-22] MEDS: Senokot S 8.6-50 MG TAB PO SCH (07:53)
[2018-12-22] MEDS: Ferrous Gluconate 324 MG TAB PO SCH (07:53)
[2018-12-22] MEDS ORDERED: Milk Of Magnesia 30 ML UDCUP PO PRN (08:15)
[2018-12-22] MEDS ORDERED: Bisacodyl 10 MG SUPP PR PRN (08:15)
[2018-12-22] MEDS ORDERED: Polyethylene Glycol 3350 17 GM Packet PO SCH (09:00)
[2018-12-22 12:30] VITALS: BP 145/80
[2018-12-22] MEDS: diphenhydrAMINE 25 MG CAP PO PRN (12:36)
--- NOTE | 2018-12-22 15:49 | PDOC.HOSPP ---
- Subjective Subjective: Patient seen and examined for med mngt. No CP/SOB or palpitations. Pain controlled. No new complaints. No overnight events - Objective Vital Signs & Weight: Vital Signs (12 hours) Temp Pulse Resp BP BP Pulse Ox 12/22/18 12:00 97.6 F 71 15 145/80 H 95 12/22/18 08:00 96 12/22/18 07:52 82 149/76 H 12/22/18 07:41 97.6 F 82 18 149/76 H 96 12/22/18 03:49 98.4 F 97 16 137/64 98 Weight Admit Weight 216 lb Weight 216 lb I&O: 12/21/18 12/22/18 12/23/18 06:59 06:59 06:59 Intake Total 1885 500 Output Total 4400 Balance -2515 500 Result Diagrams: 12/22/18 05:13 ROS - Review of Systems All systems: All other ROS were reviewed and found negative. Respiratory: denies: cough, dry, shortness of breath, hemoptysis, SOB with excertion, pleuritic pain, sputum, wheezing, other Cardiovascular: denies: chest pain, palpitations, orthopnea, paroxysmal noc. dyspnea, edema, light headedness, other Gastrointestinal: denies: nausea, vomitting, abdominal pain, diarrhea, constipation, melena, hematochezia, other - Exam NAD Heart: RRR, no gallops Respiratory: CTAB, no rales Gastrointestinal: soft, non-tender, normal bowel sounds Extremities: no edema Hosp A/P (1) HTN (hypertension) Code(s): I10 - ESSENTIAL (PRIMARY) HYPERTENSION Status: Chronic (2) GERD (gastroesophageal reflux disease) Code(s): K21.9 - GASTRO-ESOPHAGEAL REFLUX DISEASE WITHOUT ESOPHAGITIS Status: Chronic (3) Chronic diastolic heart failure Code(s): I50.32 - CHRONIC DIASTOLIC (CONGESTIVE) HEART FAILURE Status: Chronic (4) CKD (chronic kidney disease) stage 2, GFR 60-89 ml/min Code(s): N18.2 - CHRONIC KIDNEY DISEASE, STAGE 2 (MILD) Status: Chronic (5) H/O TIA (transient ischemic attack) and stroke Code(s): Z86.73 - PRSNL HX OF TIA (TIA), AND CEREB INFRC W/O RESID DEFICITS (6) Intracranial arachnoid cyst Code(s): G93.0 - CEREBRAL CYSTS Status: Chronic (7) Obesity (BMI 30.0-34.9) Code(s): E66.9 - OBESITY, UNSPECIFIED Status: Chronic - Plan Cont Lisinopril Cont Lasix Cont other meds including Statins and PPI Cont to monitor Will follow PRN
== END 2018-12-22 15:34 | disposition home health service (06) | DRG 470 ==
LOC: SDC 05:44 → SJJU 07:16
PROVIDERS: ADMIT Orthopaedic Surgery; ATTEND Orthopaedic Surgery
PROC: 0SRC0J9 Replacement of Right Knee Joint with Synthetic Substitute, Cemented, Open Approach (ICD-10-PCS; principal; 2018-12-20)
DX: M17.11 Unilateral primary osteoarthritis, right knee (principal); I13.0 Hypertensive heart and chronic kidney disease with heart failure and stage 1 through stage 4 chronic kidney disease, or unspecified chronic kidney disease; I50.32 Chronic diastolic (congestive) heart failure; N18.2 Chronic kidney disease, stage 2 (mild); K21.9 Gastro-esophageal reflux disease without esophagitis; G93.0 Cerebral cysts; E66.9 Obesity, unspecified; Z86.73 Personal history of transient ischemic attack (TIA), and cerebral infarction without residual deficits; Z68.31 Body mass index [BMI] 31.0-31.9, adult
CPT/HCPCS: 36415; 85027; C1713; C1776; J0670; J0690; J1885; J2001; J2250; J2405; J2704; J2795; J3010; J3370; J3490; J7050; Q0162; Q0163; S0020

== ENCOUNTER 2019-02-23 15:43 | Outpatient (CLI) | payer MEDICARE ==
--- NOTE | 2019-02-23 16:25 | ULT ---
EXAM: Right lower extremity venous ultrasound HISTORY: Right lower extremity pain and edema after recent knee replacement COMPARISON: None TECHNIQUE: Multiplanar grayscale and color Doppler images were obtained in a right lower extremity ve nous ultrasound. Spectral analysis of the Doppler waveforms were performed. FINDINGS: The common femoral vein, profunda femoral vein, superficial femoral vein, and popliteal vei n are normal in appearance without visible thrombus. These vessels demonstrate normal compression, flow, and augmentation. The posterior tibial vein and greater saphenous vein are patent without evidence of thrombus. IMPRESSION: No evidence of DVT.
== END 2019-02-23 15:44 | disposition home or self-care (01) ==
LOC: SCSULT 15:43
PROVIDERS: ATTEND Orthopaedic Surgery
DX: M79.661 Pain in right lower leg (principal); R60.0 Localized edema

== ENCOUNTER 2019-05-05 12:29 | Outpatient (CLI) | payer MEDICARE ==
--- NOTE | 2019-05-05 14:00 | MMO ---
Bilateral MAMMO Bilat Screen [facility]. CLINICAL HISTORY: Patient is 78 years old and is seen for screening. The patient has the following family history of breast cancer: daughter, at age 47, malignant (generic). The patient has no personal history of cancer. VIEWS: The views performed were: bilateral craniocaudal with tomosynthesis and bilateral mediolateral oblique with tomosynthesis. FILMS COMPARED: The present examination has been compared to prior imaging studies performed at [facility] on 01/23/2014 and 12/07/2017, and at [facility] on 09/25/2009 and 09/06/2012. This study has been interpreted with the assistance of computer-aided detection. MAMMOGRAM FINDINGS: There are scattered fibroglandular densities. There are stable benign appearing calcifications seen in both breasts. There are no suspicious masses, suspicious calcifications, or new areas of architectural distortion. IMPRESSION: THERE IS NO MAMMOGRAPHIC EVIDENCE OF MALIGNANCY. A ROUTINE FOLLOW-UP MAMMOGRAM IN 1 YEAR IS RECOMMENDED. THE RESULTS OF THIS EXAM WERE SENT TO THE PATIENT. ACR BI-RADS Category 2 - Benign finding MAMMOGRAPHY NOTE: 1. A negative mammogram report should not delay a biopsy if a dominant of clinically suspicious mass is present. 2. Approximately 10% to 15% of breast cancers are not detected by mammography. 3. Adenosis and dense breasts may obscure an underlying neoplasm. Reported by: HERNANDEZ CORDOBA MD Electonically Signed: [id number]
== END 2019-05-05 12:30 | disposition home or self-care (01) ==
LOC: BICMAMMO 12:29
PROVIDERS: ATTEND Family Medicine
DX: Z12.31 Encounter for screening mammogram for malignant neoplasm of breast (principal); Z80.3 Family history of malignant neoplasm of breast
CPT/HCPCS: 77063; 77067

== ENCOUNTER 2019-07-24 09:06 | Outpatient (CLI) | payer MEDICARE ==
--- NOTE | 2019-07-24 09:43 | BD ---
DEXA BONE DENSITY STUDY: HISTORY: Menopause. COMPARISON: 10/31/2014. FINDINGS: Lumbar Spine: BMD (g/cm2) L1 0.889 T-Score: -0.9 L2 0.903 T-Score: -1.1 L3 0.894 T-Score: -1.7 L4 0.838 T-Score: -2.0 L1-L4 0.877 T-Score: -1.5 Evidence for osteopenia with increased risk for fracture compared to the 10/31/2014 study. At that t kristen, total BMD was 0.927, T-Score was -1.1 with some overall worsening on today's study. Femoral Neck: 0.528 T-Score: -2.9 Total Femur: 0.713 T-Score: -1.9 Evidence for osteoporosis with high risk for fracture. On the prior study femoral neck BMD was 0.638 with a T score of -1.9 indicating definite worsening. FRAX score was not given because some T score was abnormally low -2.5 Transcribed Date/Time: 07/24/2019 10:32 AM
== END 2019-07-24 09:07 | disposition home or self-care (01) ==
LOC: BICMAMMO 09:06
PROVIDERS: ATTEND Student in an Organized Health Care Education/Training Program
DX: Z13.820 Encounter for screening for osteoporosis (principal); E83.52 Hypercalcemia; E21.3 Hyperparathyroidism, unspecified; Z78.0 Asymptomatic menopausal state
CPT/HCPCS: 77080

== ENCOUNTER 2020-02-02 09:10 | Outpatient (CLI) | payer MEDICARE ==
--- NOTE | 2020-02-02 14:53 | NM ---
Radionucleotide parathyroid scan with CT SPECT imaging HISTORY: Hyperparathyroidism. FINDINGS: Physiologic uptake of radiotracer within the thyroid gland and visualized salivary glands. A focal area of increased uptake is present within the right tracheoesophageal groove at the level of the lower margin T1 body. It is associated with a small vertically oriented soft tissue density nodule on the CT images. No pathologic uptake is otherwise demonstrated. 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
== END 2020-02-02 09:11 | disposition home or self-care (01) ==
LOC: NM 09:10
PROVIDERS: ATTEND Student in an Organized Health Care Education/Training Program
DX: E21.3 Hyperparathyroidism, unspecified (principal); D35.1 Benign neoplasm of parathyroid gland
CPT/HCPCS: 78072; A9500

== ENCOUNTER 2020-02-17 20:14 | Emergency (ER) | payer MEDICARE, OTHER ==
[2020-02-17 21:58] LABS: Bilirubin Negative (Negative); Clarity Turbid (Clear); Glucose, Urine (Dipstick) Normal (Negative); Ketone, Urine Negative (Negative); Leukocyte 250 Leu/uL (Negative); Nitrite Negative (Negative); Protein, Urine (Dipstick) 10 mg/dL (Neg-Trace); Specific Gravity, Urine 1.038 (1.002-1.036); Urobilinogen Normal mg/dL (Less than 2)
[2020-02-17 22:06] LABS: Blood, Urine 10 (Negative); WBC/HPF 21-50 HPF (0-3)
[2020-02-17 22:07] LABS: Bacteria/HPF 2+ HPF (None Seen); Yeast-Budding 2+ HPF (None Seen)
[2020-02-17 22:11] LABS: SARS-CoV-2 NAA Rapid Test DETECTED (NotDetected)
== END 2020-02-17 23:02 | disposition home or self-care (01) ==
LOC: ERS 20:14
DX: U07.1 COVID-19 (principal); E78.5 Hyperlipidemia, unspecified; E78.00 Pure hypercholesterolemia, unspecified; I10 Essential (primary) hypertension; Z79.82 Long term (current) use of aspirin; Z79.899 Other long term (current) drug therapy
CPT/HCPCS: 87086; 99284; U0002; 81003; 81015

== ENCOUNTER 2020-08-27 07:31 | Observation (INO) | payer MEDICARE ==
[2020-08-27] MEDS ORDERED: Lidocaine 1% w/Epinephrine 1:100K 20 ML VIAL ONE (07:40)
[2020-08-27] MEDS ORDERED: Fentanyl 100 MCG/2 ML VIAL ONE (09:53)
[2020-08-27] MEDS ORDERED: Labetalol HCl 100 MG/20 ML VIAL ONE (10:06)
[2020-08-27] MEDS ORDERED: PROPOFOL 200 MG/20 ML VIAL ONE (10:06)
[2020-08-27] MEDS ORDERED: Rocuronium Bromide 10 MG/ML (10ML VIAL) ONE (10:06)
[2020-08-27] MEDS ORDERED: Ondansetron PF 4 MG/2 ML Vial ONE (10:06)
[2020-08-27] MEDS ORDERED: Dexamethasone 20 MG/5 ML VIAL ONE (10:06)
[2020-08-27] MEDS ORDERED: SUGAMMADEX SODIUM 200 MG/2 ML VIAL ONE (11:48)
[2020-08-27] MEDS ORDERED: hydrALAZINE 20 MG/ML VIAL ONE (13:13)
[2020-08-27] MEDS ORDERED: Ondansetron PF 4 MG/2 ML Vial IVP PRN (15:16)
[2020-08-27] MEDS: HYDROcodone/Acetaminophen 5/325 mg Tablet PO PRN ×2 (15:38→20:20)
[2020-08-27] MEDS ORDERED: Furosemide 40 MG TAB PO PRN (16:29)
[2020-08-27] MEDS: Docusate 100 MG CAP PO SCH (20:20)
[2020-08-27] MEDS ORDERED: Atorvastatin Calcium 20 MG TAB PO SCH (21:00)
[2020-08-28] MEDS: HYDROcodone/Acetaminophen 5/325 mg Tablet PO PRN (04:06)
[2020-08-28] MEDS: Docusate 100 MG CAP PO SCH (08:27)
[2020-08-28] MEDS ORDERED: Lisinopril 20 MG TAB PO SCH ×2 (09:00)
[2020-08-28] MEDS ORDERED: Cyanocobalamin (Vitamin B-12) 1,000 MCG TAB PO SCH (09:00)
[2020-08-28] MEDS ORDERED: Cholecalciferol 1,000 UNITS (25 MCG) TAB PO SCH (09:00)
[2020-08-28 14:23] VITALS: BMI 29.8
[2020-08-28 14:33] VITALS: BP 152/97; TEMP 98.7
== END 2020-08-28 14:38 | disposition home or self-care (01) ==
LOC: SDC 07:31 → T4-B 13:02
PROVIDERS: ADMIT Student in an Organized Health Care Education/Training Program; ATTEND Student in an Organized Health Care Education/Training Program
PROC: 0GTR0ZZ Resection of Parathyroid Gland, Open Approach (ICD-10-PCS; principal; 2020-08-27)
DX: D35.1 Benign neoplasm of parathyroid gland (principal); E21.3 Hyperparathyroidism, unspecified; M81.0 Age-related osteoporosis without current pathological fracture; I10 Essential (primary) hypertension; E78.5 Hyperlipidemia, unspecified; K21.9 Gastro-esophageal reflux disease without esophagitis; M19.90 Unspecified osteoarthritis, unspecified site; Z79.82 Long term (current) use of aspirin; Z79.899 Other long term (current) drug therapy
CPT/HCPCS: 60500; 82310 ×2; 82962; 83970 ×2; 88305; 88331; 88334; G0378 ×2; 36415; 36416; J0360; J0690; J1100; J1642; J2405; J2704; J3010

== ENCOUNTER 2023-11-09 05:33 | Inpatient (IN) | payer OTHER ==
[2023-11-09] MEDS ORDERED: Ondansetron PF 4 MG/2 ML Vial ONE (05:44)
[2023-11-09] MEDS ORDERED: Morphine 4 MG/ML VIAL ONE (05:44)
[2023-11-09 06:42] LABS: #Basophils 0.04 10x3/uL (0.0-0.2); %Basophils 0.9 % (0.0-1.0); %Eosinophils 2.1 % (0.0-10.0); %Lymphocytes 16.9 % (21.0-51.0); %Monocytes 11.1 % (0.0-10.0); %Neutrophils 67.7 % (42.0-75.0); Hematocrit 25.4 % (36.0-47.0); Hemoglobin 8.1 g/dL (12.0-16.0); Mean Corpuscular HGB CONC 31.9 g/dL (32.0-36.0); Mean Corpuscular Hemoglobin 33.3 pg (27.0-31.0); Mean Corpuscular Volume 104.5 fL (78.0-98.0); Mean Platelet Volume 10.4 fL (7.4-10.4); Platelet Count 191 10x3/uL (130-400); RBC Distribution Width 14.7 % (11.5-14.5); Red Blood Cell (RBC) Count 2.43 mill/uL (4.20-5.40)
[2023-11-09 06:59] LABS: INR-International Normal Ratio 1.2; Prothrombin Time 14.9 sec (12.0-14.7)
[2023-11-09 07:00] LABS: PTT 29.2 sec (22.9-36.1)
[2023-11-09] MEDS ORDERED: Morphine 4 MG/ML VIAL SLOW IVP PRN ×2 (07:11→20:02)
[2023-11-09] MEDS ORDERED: Ondansetron PF 4 MG/2 ML Vial IVP PRN (07:11)
[2023-11-09] MEDS ORDERED: Ondansetron ODT 4 MG TAB PO PRN (07:11)
[2023-11-09 07:17] LABS: ALT (SGPT) 30 U/L (8-55); AST (SGOT) 15 U/L (5-34); Albumin 2.5 g/dL (3.4-4.8); Alkaline Phosphatase 95 U/L (40-110); Anion Gap 16 mmol/L (10-20); BUN (Urea Nitrogen) 18 mg/dL (9.8-20.1); Bilirubin, Total 0.5 mg/dL (0.2-1.2); Calc. Creatinine Clearance 0 mL/min (70-130); Carbon Dioxide 18 mmol/L (23-31); Chloride 108 mmol/L (98-107); Estimated GFR 79; Globulin 2.7 g/dL (2.4-3.5); Glucose 96 mg/dL (83-110); Potassium 3.6 mmol/L (3.5-5.1); Protein, Total 5.2 g/dL (5.8-8.1); Sodium 138 mmol/L (136-145)
[2023-11-09] MEDS ORDERED: CEFAZOLIN 2 GM in Sodium Chloride 0.9% 100 ML IVPB SCH (07:45)
[2023-11-09] MEDS: D5 1/2 NS w/20 mEq KCL 1,000 ML IV SCH (09:14)
[2023-11-09 11:13] VITALS: BMI 23.6
[2023-11-09] MEDS ORDERED: EPINEPHrine 1 MG/ML VIAL ONE (12:20)
[2023-11-09] MEDS ORDERED: Bupivacaine PF 0.5% 30 ML VIAL ONE (12:20)
[2023-11-09] MEDS ORDERED: Sodium Chloride 0.9% 100 ML ONE (12:30)
[2023-11-09] MEDS ORDERED: CEFAZOLIN 2 GM VIAL ONE (12:30)
[2023-11-09] MEDS ORDERED: PROPOFOL 20 ML ONE ×2 (12:50→13:02)
[2023-11-09] MEDS ORDERED: fentaNYL PF 100 MCG/2 ML SYRINGE ONE (12:50)
[2023-11-09] MEDS ORDERED: Dexamethasone 20 MG/5 ML VIAL ONE (13:09)
[2023-11-09] MEDS ORDERED: PHENYLEPHRINE-NS 100 MCG/ML 10 ML SYRINGE ONE (13:09)
[2023-11-09] MEDS ORDERED: Ketorolac Tromethamine 30 MG (1 mL) VIAL ONE (13:29)
[2023-11-09] MEDS ORDERED: Lidocaine 1% PF 5 ML VIAL ONE (13:29)
[2023-11-09] MEDS ORDERED: ePHEDrine Sulfate 50 MG/10 ML VIAL ONE (13:47)
[2023-11-09 20:21] LABS: Hematocrit 19.3 % (36.0-47.0); Hemoglobin 6.1 g/dL (12.0-16.0); Mean Corpuscular HGB CONC 31.6 g/dL (32.0-36.0); Mean Corpuscular Hemoglobin 32.1 pg (27.0-31.0); Mean Corpuscular Volume 101.6 fL (78.0-98.0); Platelet Count 158 10x3/uL (130-400); RBC Distribution Width 14.8 % (11.5-14.5)
[2023-11-09 22:05] LABS: Hematocrit 18.2 % (36.0-47.0); Hemoglobin 5.9 g/dL (12.0-16.0); Mean Corpuscular HGB CONC 32.4 g/dL (32.0-36.0); Mean Corpuscular Hemoglobin 33.1 pg (27.0-31.0); Mean Corpuscular Volume 102.2 fL (78.0-98.0); Mean Platelet Volume 10.5 fL (7.4-10.4); Platelet Count 146 10x3/uL (130-400); RBC Distribution Width 14.8 % (11.5-14.5); Red Blood Cell (RBC) Count 1.78 mill/uL (4.20-5.40)
[2023-11-09] MEDS: Atorvastatin Calcium 20 MG TAB PO SCH (22:21)
[2023-11-09] MEDS: Acetaminophen 325 MG TAB PO SCH (22:21)
[2023-11-09 22:34] LABS: Band 19 % (5-11); Elliptocytes SLIGHT = 2-5 cells HPF (0-1); Large Platelets 2.9 % (0-5); Lymphocytes 2 % (21-51); Macrocytosis SLIGHT = 6-15 cells HPF (0-5); Monocytes 3 % (0-10); Neutrophil 76 % (42-75); Platelet Adequacy Comment Platelets Normal; Polychromasia SLIGHT = 2-3 cells HPF (0-2); Smudge Cells 6.7 %; Tear Drops SLIGHT = 2-5 cells HPF (0-1)
[2023-11-09] MEDS: Ketorolac Tromethamine 30 MG (1 mL) VIAL IVP SCH ×2 (23:06→23:20)
[2023-11-09] MEDS: Hydrocortisone Sod Succ/PF 100 mg/2 ml Vial IVP SCH (23:20)
[2023-11-10] MEDS: CEFAZOLIN 2 GM in Sodium Chloride 0.9% 100 ML IVPB SCH ×2 (01:38→16:44)
[2023-11-10] MEDS: Hydrocortisone Sod Succ/PF 100 mg/2 ml Vial IVP SCH (05:38)
[2023-11-10] MEDS ORDERED: Dexamethasone 1 MG TAB PO SCH (08:00)
[2023-11-10 08:32] LABS: Anion Gap 14 mmol/L (10-20); BUN (Urea Nitrogen) 22 mg/dL (9.8-20.1); Calc. Creatinine Clearance 58 mL/min (70-130); Calcium 8.4 mg/dL (7.8-10.44); Carbon Dioxide 18 mmol/L (23-31); Chloride 111 mmol/L (98-107); Estimated GFR 64; Glucose 126 mg/dL (83-110); Hematocrit 25.4 % (36.0-47.0); Hemoglobin 8.3 g/dL (12.0-16.0); Magnesium 1.4 mg/dL (1.6-2.6); Mean Corpuscular HGB CONC 32.7 g/dL (32.0-36.0); Mean Corpuscular Volume 91.7 fL (78.0-98.0); Mean Platelet Volume 10.5 fL (7.4-10.4); Phosphorus 2.6 mg/dL (2.3-4.7); Platelet Count 138 10x3/uL (130-400); Potassium 4.8 mmol/L (3.5-5.1); RBC Distribution Width 20.3 % (11.5-14.5); Red Blood Cell (RBC) Count 2.77 mill/uL (4.20-5.40); Sodium 138 mmol/L (136-145)
[2023-11-10 09:11] VITALS: BMI 23.6
[2023-11-10] MEDS: Aspirin 81 mg Enteric Coated Tablet PO SCH (09:24)
[2023-11-10] MEDS: Magnesium Sulfate In Water 4 GM in Premix 1 BAG IVPB SCH (09:24)
[2023-11-10] MEDS: Cholecalciferol 1,000 UNITS (25 MCG) TAB PO SCH (09:25)
[2023-11-10] MEDS: Potassium Chloride 20 MEQ TAB PO SCH (09:25)
[2023-11-10] MEDS: Cyanocobalamin (Vitamin B-12) 1,000 MCG TAB PO SCH (09:25)
[2023-11-10] MEDS: Pantoprazole DR 40 MG TAB PO SCH (09:25)
[2023-11-10 09:30] LABS: Band 7 % (5-11); Large Platelets 1.9 % (0-5); Lymphocytes 14 % (21-51); Monocytes 2 % (0-10); Neutrophil 78 % (42-75); Nucleated RBC (Manual Ct) 1 % (0); Platelet Adequacy Comment Platelets Normal; RBC Morphology Within Normal Limits
[2023-11-10] MEDS: Lisinopril 20 MG TAB PO SCH (09:31)
[2023-11-10] MEDS: Bisacodyl 5 MG TAB PO SCH (15:18)
[2023-11-10] MEDS: Enoxaparin 40 MG (0.4 mL) SYRINGE SC SCH (21:13)
[2023-11-11 05:43] LABS: Hematocrit 21.3 % (36.0-47.0); Hemoglobin 7.2 g/dL (12.0-16.0); Mean Corpuscular HGB CONC 33.8 g/dL (32.0-36.0); Mean Corpuscular Hemoglobin 30.8 pg (27.0-31.0); Mean Platelet Volume 11.8 fL (7.4-10.4); Platelet Count 127 10x3/uL (130-400); RBC Distribution Width 20.9 % (11.5-14.5); Red Blood Cell (RBC) Count 2.34 mill/uL (4.20-5.40)
[2023-11-11 06:13] LABS: Anisocytosis SLIGHT = 6-15 cells HPF (0-5); Band 13 % (5-11); Burr Cells SLIGHT = 2-5 cells HPF (0-1); Large Platelets 11.8 % (0-5); Lymphocytes 7 % (21-51); Monocytes 5 % (0-10); Neutrophil 75 % (42-75); Platelet Adequacy Comment Platelets Decreased; Smudge Cells 18.6 %
[2023-11-11 10:41] LABS: Magnesium 2.5 mg/dL (1.6-2.6)
[2023-11-12 04:44] LABS: #Basophils Less than 0.03 10x3/uL (0.0-0.2); #Eosinphils Less than 0.03 10x3/uL (0.0-0.7); %Eosinophils 0.2 % (0.0-10.0); %Neutrophils 81.6 % (42.0-75.0); Hemoglobin 6.9 g/dL (12.0-16.0); Mean Corpuscular HGB CONC 32.9 g/dL (32.0-36.0); Mean Corpuscular Hemoglobin 30.3 pg (27.0-31.0); Mean Corpuscular Volume 92.1 fL (78.0-98.0); Mean Platelet Volume 11.2 fL (7.4-10.4); Platelet Count 136 10x3/uL (130-400); RBC Distribution Width 20.3 % (11.5-14.5); Red Blood Cell (RBC) Count 2.28 mill/uL (4.20-5.40)
[2023-11-12 05:01] LABS: Anion Gap 11 mmol/L (10-20); BUN (Urea Nitrogen) 29 mg/dL (9.8-20.1); Calc. Creatinine Clearance 64 mL/min (70-130); Calcium 8.4 mg/dL (7.8-10.44); Carbon Dioxide 17 mmol/L (23-31); Chloride 110 mmol/L (98-107); Estimated GFR 72; Glucose 96 mg/dL (83-110); Magnesium 2.4 mg/dL (1.6-2.6); Potassium 4.3 mmol/L (3.5-5.1); Sodium 134 mmol/L (136-145)
[2023-11-12] MEDS: Polyethylene Glycol 3350 17 GM Packet PO PRN (10:12)
[2023-11-12] MEDS: Glycerin Adult Supp. (24 ct jar) PR SCH (16:57)
[2023-11-12] MEDS: Glycerin Adult Supp. (12 ct jar) PR SCH (19:48)
[2023-11-12 20:27] LABS: Hematocrit 25.6 % (36.0-47.0); Hemoglobin 8.4 g/dL (12.0-16.0); Platelet Count 141 10x3/uL (130-400)
[2023-11-13 07:59] LABS: #Basophils Less than 0.03 10x3/uL (0.0-0.2); #Eosinphils Less than 0.03 10x3/uL (0.0-0.7); %Basophils 0.2 % (0.0-1.0); %Lymphocytes 12.4 % (21.0-51.0); %Monocytes 4.9 % (0.0-10.0); %Neutrophils 81.2 % (42.0-75.0); Hematocrit 23.8 % (36.0-47.0); Hemoglobin 7.9 g/dL (12.0-16.0); Mean Corpuscular HGB CONC 33.2 g/dL (32.0-36.0); Mean Corpuscular Hemoglobin 30.6 pg (27.0-31.0); Mean Corpuscular Volume 92.2 fL (78.0-98.0); Mean Platelet Volume 11.3 fL (7.4-10.4); Platelet Count 140 10x3/uL (130-400); RBC Distribution Width 19.9 % (11.5-14.5); Red Blood Cell (RBC) Count 2.58 mill/uL (4.20-5.40)
[2023-11-13] MEDS: Lactulose 20 GM (30 mL) UDCUP PO SCH ×2 (08:38→11:03)
[2023-11-13] MEDS ORDERED: Senokot 8.6 MG TAB PO PRN (09:05)
[2023-11-13] MEDS: Senokot 8.6 MG TAB PO SCH (12:24)
[2023-11-14 12:40] LABS: Hematocrit 24.2 % (36.0-47.0); Hemoglobin 8.1 g/dL (12.0-16.0)
[2023-11-15 05:28] LABS: #Basophils Less than 0.03 10x3/uL (0.0-0.2); %Basophils 0.2 % (0.0-1.0); %Eosinophils 3.5 % (0.0-10.0); %Lymphocytes 13.3 % (21.0-51.0); %Monocytes 9.8 % (0.0-10.0); %Neutrophils 72.4 % (42.0-75.0); Hematocrit 24.6 % (36.0-47.0); Mean Corpuscular HGB CONC 32.5 g/dL (32.0-36.0); Mean Corpuscular Hemoglobin 30.5 pg (27.0-31.0); Mean Corpuscular Volume 93.9 fL (78.0-98.0); Mean Platelet Volume 10.4 fL (7.4-10.4); Platelet Count 147 10x3/uL (130-400); Red Blood Cell (RBC) Count 2.62 mill/uL (4.20-5.40)
[2023-11-15] MEDS ORDERED: Simethicone Chewable 80 MG TAB PO PRN (07:51)
[2023-11-15] MEDS: Simethicone Chewable 80 MG TAB PO SCH (08:51)
[2023-11-16] MEDS: hydrOXYzine Pamoate 25 mg Capsule PO PRN (13:26)
[2023-11-16] MEDS: Acetaminophen/Codeine 30-300mg Tablet PO PRN (18:34)
[2023-11-17 09:40] VITALS: BP 128/76; TEMP 98.1
== END 2023-11-17 11:27 | DRG 481 ==
LOC: ERS 05:33 → SURG A 08:06
PROVIDERS: ADMIT Surgery; ATTEND Surgery
PROC: 0QS706Z Reposition Left Upper Femur with Intramedullary Internal Fixation Device, Open Approach (ICD-10-PCS; principal; 2023-11-09)
PROC: 30233N1 Transfusion of Nonautologous Red Blood Cells into Peripheral Vein, Percutaneous Approach (ICD-10-PCS; 2023-11-09)
PROC: 3E033XZ Introduction of Vasopressor into Peripheral Vein, Percutaneous Approach (ICD-10-PCS; 2023-11-09)
DX: S72.142A Displaced intertrochanteric fracture of left femur, initial encounter for closed fracture (principal); C90.00 Multiple myeloma not having achieved remission; D62 Acute posthemorrhagic anemia; K59.00 Constipation, unspecified; R53.81 Other malaise; E55.9 Vitamin D deficiency, unspecified; I10 Essential (primary) hypertension; K21.9 Gastro-esophageal reflux disease without esophagitis; E83.52 Hypercalcemia; S72.22XA Displaced subtrochanteric fracture of left femur, initial encounter for closed fracture; W19.XXXA Unspecified fall, initial encounter; Z96.651 Presence of right artificial knee joint; Z90.89 Acquired absence of other organs; Z90.710 Acquired absence of both cervix and uterus; Z79.82 Long term (current) use of aspirin; Z79.899 Other long term (current) drug therapy
CPT/HCPCS: 36415; 36430; 71045; 72170; 80048; 80053; 82248; 82533; 83615; 83735; 83883; 84100; 84155; 84165; 84550; 85014; 85018; 85025; 85610; 85730; 86850; 86870; 86900; 86901; 86922; 93005; 96374; C1713; J0171; J0665; J1100; J1650; J1720; J1885; J2270; J2405; J2704; J3475; J3480; J3490; P9016; Q0177

== ENCOUNTER 2025-04-30 13:28 | Inpatient (IN) | payer MEDICARE ==
[2025-04-30 15:20] LABS: #Basophils Less than 0.03 10x3/uL (0.0-0.2); #Eosinophils 0.05 10x3/uL (0.0-0.7); #Monocytes 0.66 10x3/uL (0.11-0.59); #Neutrophils 6.86 10x3/uL (1.40-6.50); %Basophils 0.2 % (0.0-1.0); %Eosinophils 0.5 % (0.0-10.0); %Lymphocytes 18.3 % (21.0-51.0); %Monocytes 7.1 % (0.0-10.0); %Neutrophils 73.7 % (42.0-75.0); Hematocrit 41.8 % (36.0-47.0); Hemoglobin 13.4 g/dL (12.0-16.0); Mean Corpuscular Hemoglobin 30.2 pg (27.0-31.0); Mean Corpuscular Volume 94.1 fL (78.0-98.0); Platelet Count 258 10x3/uL (130-400); Red Blood Cell (RBC) Count 4.44 mill/uL (4.20-5.40); White Blood Cell (WBC) Count 9.32 10x3/uL (4.8-10.8)
[2025-04-30] MEDS ORDERED: hydrALAZINE 20 MG/ML VIAL SLOW IVP PRN (15:27)
[2025-04-30] MEDS ORDERED: Glucagon 1 MG/ML KIT IM PRN (15:27)
[2025-04-30] MEDS ORDERED: Dextrose 50% Abboject 50 ML SYRINGE SLOW IVP PRN (15:27)
[2025-04-30 15:39] LABS: ALT (SGPT) 13 U/L (Less than 34); AST (SGOT) 19 U/L (11-34); Albumin 3.6 g/dL (3.1-4.5); Alkaline Phosphatase 239 U/L (40-110); Anion Gap 13 mmol/L (10-20); BUN (Urea Nitrogen) 14 mg/dL (9.8-20.1); Bilirubin, Total 0.4 mg/dL (0.3-1.2); Calc. Creatinine Clearance 0 mL/min (70-130); Calcium 10.8 mg/dL (7.8-10.44); Carbon Dioxide 27 mmol/L (23-31); Chloride 105 mmol/L (98-107); Globulin 3.4 g/dL (2.4-3.5); Glucose 95 mg/dL (83-110); INR-International Normal Ratio 1.1; Potassium 4.3 mmol/L (3.5-5.1); Prothrombin Time 14.4 sec (12.0-14.7); Sodium 141 mmol/L (136-145)
[2025-04-30 15:40] LABS: PTT 36.1 sec (22.9-36.1)
[2025-04-30] MEDS ORDERED: Ondansetron PF 4 MG/2 ML Vial ONE (15:45)
[2025-04-30] MEDS: Ondansetron PF 4 MG/2 ML Vial IVP PRN (15:53)
[2025-04-30] MEDS: Senokot S 8.6-50 MG TAB PO SCH (21:52)
[2025-04-30 23:49] VITALS: BMI 25.1
[2025-05-01 05:26] LABS: #Basophils Less than 0.03 10x3/uL (0.0-0.2); #Eosinophils 0.10 10x3/uL (0.0-0.7); #Monocytes 0.53 10x3/uL (0.11-0.59); #Neutrophils 4.30 10x3/uL (1.40-6.50); %Basophils 0.2 % (0.0-1.0); %Eosinophils 1.5 % (0.0-10.0); %Lymphocytes 23.7 % (21.0-51.0); %Monocytes 8.2 % (0.0-10.0); %Neutrophils 66.1 % (42.0-75.0); Hematocrit 37.6 % (36.0-47.0); Hemoglobin 11.9 g/dL (12.0-16.0); Mean Corpuscular Hemoglobin 30.6 pg (27.0-31.0); Mean Corpuscular Volume 96.7 fL (78.0-98.0); Platelet Count 219 10x3/uL (130-400); Red Blood Cell (RBC) Count 3.89 mill/uL (4.20-5.40); White Blood Cell (WBC) Count 6.50 10x3/uL (4.8-10.8)
[2025-05-01 06:54] LABS: Chloride 107 mmol/L (98-107); Potassium 3.9 mmol/L (3.5-5.1); Sodium 141 mmol/L (136-145)
[2025-05-01 06:55] LABS: Calcium 9.8 mg/dL (7.8-10.44); Glucose 79 mg/dL (83-110)
[2025-05-01 06:57] LABS: Anion Gap 10 mmol/L (10-20); Carbon Dioxide 28 mmol/L (23-31)
[2025-05-01 06:59] LABS: Calc. Creatinine Clearance 67 mL/min (70-130)
[2025-05-01 07:00] LABS: BUN (Urea Nitrogen) 13 mg/dL (9.8-20.1)
[2025-05-01] MEDS: Methocarbamol 500 MG TAB PO PRN (07:49)
[2025-05-01] MEDS: Acetaminophen 325 MG TAB PO PRN (07:49)
[2025-05-01] MEDS ORDERED: fentaNYL PF 100 MCG/2 ML SYRINGE ONE (13:29)
[2025-05-01] MEDS ORDERED: Ondansetron PF 4 MG/2 ML Vial ONE (13:30)
[2025-05-01] MEDS ORDERED: Lidocaine 1% PF 5 ML VIAL ONE (13:30)
[2025-05-01] MEDS ORDERED: Rocuronium Bromide 10 MG/ML (10ML VIAL) ONE (13:45)
[2025-05-01] MEDS ORDERED: PHENYLEPHRINE-NS 100 MCG/ML 10 ML SYRINGE ONE (13:45)
[2025-05-01] MEDS ORDERED: PROPOFOL 200 MG/20 ML VIAL ONE (13:45)
[2025-05-01] MEDS ORDERED: SUGAMMADEX SODIUM 200 MG/2 ML VIAL ONE (14:07)
[2025-05-02 05:11] LABS: #Basophils Less than 0.03 10x3/uL (0.0-0.2); #Eosinophils Less than 0.03 10x3/uL (0.0-0.7); #Monocytes 0.85 10x3/uL (0.11-0.59); #Neutrophils 7.63 10x3/uL (1.40-6.50); %Basophils 0.0 % (0.0-1.0); %Eosinophils 0.0 % (0.0-10.0); %Lymphocytes 10.5 % (21.0-51.0); %Monocytes 8.9 % (0.0-10.0); %Neutrophils 80.3 % (42.0-75.0); Hematocrit 33.3 % (36.0-47.0); Hemoglobin 10.6 g/dL (12.0-16.0); Mean Corpuscular Hemoglobin 30.9 pg (27.0-31.0); Mean Corpuscular Volume 97.1 fL (78.0-98.0); Platelet Count 213 10x3/uL (130-400); Red Blood Cell (RBC) Count 3.43 mill/uL (4.20-5.40); White Blood Cell (WBC) Count 9.51 10x3/uL (4.8-10.8)
[2025-05-02 05:26] LABS: Anion Gap 8 mmol/L (10-20); BUN (Urea Nitrogen) 14 mg/dL (9.8-20.1); Calc. Creatinine Clearance 77 mL/min (70-130); Calcium 9.6 mg/dL (7.8-10.44); Carbon Dioxide 26 mmol/L (23-31); Chloride 106 mmol/L (98-107); Glucose 126 mg/dL (83-110); Potassium 4.5 mmol/L (3.5-5.1); Sodium 135 mmol/L (136-145)
[2025-05-02] MEDS: Aspirin 81 mg Enteric Coated Tablet PO SCH (08:46)
[2025-05-02] MEDS: Furosemide 40 MG TAB PO SCH (08:46)
[2025-05-02] MEDS: Pantoprazole 40 MG DR.TAB PO SCH (08:46)
[2025-05-02] MEDS: Apixaban 5 MG TAB PO SCH (08:46)
[2025-05-02 15:16] VITALS: BMI 25.1
[2025-05-03 05:53] LABS: #Basophils Less than 0.03 10x3/uL (0.0-0.2); #Eosinophils 0.05 10x3/uL (0.0-0.7); #Monocytes 0.97 10x3/uL (0.11-0.59); #Neutrophils 7.77 10x3/uL (1.40-6.50); %Basophils 0.1 % (0.0-1.0); %Eosinophils 0.5 % (0.0-10.0); %Lymphocytes 11.8 % (21.0-51.0); %Monocytes 9.7 % (0.0-10.0); %Neutrophils 77.4 % (42.0-75.0); Hematocrit 27.5 % (36.0-47.0); Hemoglobin 8.6 g/dL (12.0-16.0); Mean Corpuscular Hemoglobin 30.5 pg (27.0-31.0); Mean Corpuscular Volume 97.5 fL (78.0-98.0); Platelet Count 170 10x3/uL (130-400); Red Blood Cell (RBC) Count 2.82 mill/uL (4.20-5.40); White Blood Cell (WBC) Count 10.03 10x3/uL (4.8-10.8)
[2025-05-03 06:09] LABS: Anion Gap 2 mmol/L (10-20); BUN (Urea Nitrogen) 19 mg/dL (9.8-20.1); Calc. Creatinine Clearance 56 mL/min (70-130); Calcium 9.4 mg/dL (7.8-10.44); Carbon Dioxide 27 mmol/L (23-31); Chloride 104 mmol/L (98-107); Glucose 99 mg/dL (83-110); Potassium 3.9 mmol/L (3.5-5.1); Sodium 129 mmol/L (136-145)
[2025-05-04 06:12] LABS: #Basophils Less than 0.03 10x3/uL (0.0-0.2); #Eosinophils 0.08 10x3/uL (0.0-0.7); #Monocytes 0.81 10x3/uL (0.11-0.59); #Neutrophils 6.37 10x3/uL (1.40-6.50); %Basophils 0.1 % (0.0-1.0); %Eosinophils 0.9 % (0.0-10.0); %Lymphocytes 17.6 % (21.0-51.0); %Monocytes 9.1 % (0.0-10.0); %Neutrophils 71.8 % (42.0-75.0); Hematocrit 26.3 % (36.0-47.0); Hemoglobin 8.3 g/dL (12.0-16.0); Mean Corpuscular Hemoglobin 30.7 pg (27.0-31.0); Mean Corpuscular Volume 97.4 fL (78.0-98.0); Platelet Count 160 10x3/uL (130-400); Red Blood Cell (RBC) Count 2.70 mill/uL (4.20-5.40); White Blood Cell (WBC) Count 8.87 10x3/uL (4.8-10.8)
[2025-05-04 06:25] LABS: Anion Gap 4 mmol/L (10-20); BUN (Urea Nitrogen) 16 mg/dL (9.8-20.1); Calc. Creatinine Clearance 77 mL/min (70-130); Calcium 9.5 mg/dL (7.8-10.44); Carbon Dioxide 26 mmol/L (23-31); Chloride 107 mmol/L (98-107); Glucose 91 mg/dL (83-110); Potassium 3.6 mmol/L (3.5-5.1); Sodium 133 mmol/L (136-145)
[2025-05-04 12:34] VITALS: BP 112/74; TEMP 98.1
== END 2025-05-04 16:10 | DRG 521 ==
LOC: ERS 13:28 → ERHOLD 15:34 → SURG A 17:44
PROVIDERS: ADMIT Surgery; ATTEND Surgery
PROC: 0SRR0JZ Replacement of Right Hip Joint, Femoral Surface with Synthetic Substitute, Open Approach (ICD-10-PCS; principal; 2025-05-01)
DX: S72.091A Other fracture of head and neck of right femur, initial encounter for closed fracture (principal); L89.154 Pressure ulcer of sacral region, stage 4; S32.511D Fracture of superior rim of right pubis, subsequent encounter for fracture with routine healing; K21.9 Gastro-esophageal reflux disease without esophagitis; E78.5 Hyperlipidemia, unspecified; Z79.01 Long term (current) use of anticoagulants; W19.XXXA Unspecified fall, initial encounter
CPT/HCPCS: 36415; 72170; 80048; 80053; 85025; 85610; 85730; 93005; 97139; 99285; C1713; C1776; J1100; J2270; J2405; J2704; J7030; J7120